=== PATIENT | female | born 1970 | race Hispanic/Latino ===

== ENCOUNTER → 2019-01-22 | Outpatient (CLI) | payer MEDICARE | END | disposition home or self-care (01) | LOC: RAH 08:14 | PROVIDERS: ATTEND Nurse Practitioner Family | DX: R91.8 Other nonspecific abnormal finding of lung field (principal); M47.815 Spondylosis without myelopathy or radiculopathy, thoracolumbar region | CPT/HCPCS: 71046 ==

== ENCOUNTER → 2019-02-05 | Outpatient (CLI) | payer MEDICARE | END | disposition home or self-care (01) | LOC: RAH 09:31 | PROVIDERS: ATTEND Nurse Practitioner Family | DX: M54.5 Low back pain (principal); G95.20 Unspecified cord compression | CPT/HCPCS: 72100 ==

== ENCOUNTER → 2019-08-19 | Outpatient (CLI) | payer MEDICARE | END | disposition home or self-care (01) | LOC: RAH 09:14 | PROVIDERS: ATTEND Nurse Practitioner Family | DX: M17.11 Unilateral primary osteoarthritis, right knee (principal); M47.816 Spondylosis without myelopathy or radiculopathy, lumbar region; M48.54XA Collapsed vertebra, not elsewhere classified, thoracic region, initial encounter for fracture | CPT/HCPCS: 72100; 73562 ==

== ENCOUNTER → 2025-02-15 | Outpatient (CLI) | payer OTHER, MEDICARE ==
--- NOTE | 2025-02-15 10:53 | HMCIMG ---
Exam Type: US ABDOMINAL COMPLETE Clinical Information: UNSP ABD PAIN Comparison: None Findings: The liver shows normal echogenicity and is otherwise unremarkable except for simple cysts of the right lobe. The liver measures less than 16 cm in length. Doppler evaluation shows patent portal and hepatic veins. The gallbladder shows cholelithiasis. No acute or chronic inflammatory changes are seen. The gallbladder wall thickness is 1 mm. No bile duct dilatation is noted. The common bile duct measures 4 mm. The right kidney measures 9.3 x 4 cm. The left kidney measures 10.7 x 3.9 cm. The kidneys are normal in size and echogenicity. No hydronephrosis or renal calculi are seen. There are no renal masses. The pancreas is suboptimally visualized. The spleen is unremarkable. The aorta and inferior vena cava show no significant abnormalities. IMPRESSION: Cholelithiasis. Simple cyst right liver lobe.
== END | disposition home or self-care (01) ==
LOC: RAH 09:41
PROVIDERS: ATTEND Nurse Practitioner Family
DX: K80.20 Calculus of gallbladder without cholecystitis without obstruction (principal); K76.89 Other specified diseases of liver; R10.9 Unspecified abdominal pain
CPT/HCPCS: 76700